=== PATIENT | male | born 1960 | race African-American/Black ===

== ENCOUNTER 2018-01-18 12:44 | Inpatient (IN) | payer OTHER ==
[2018-01-18 13:38] VITALS: BMI 25.2
--- NOTE | 2018-01-18 15:22 | HP ---
Admission ROS [facility] Chief Complaint: Patient presents for crack/cocaine dependence. Allergies/Adverse Reactions: Allergies Allergy/AdvReac Type Severity Reaction Status Date / Time No Known Allergies Allergy Verified 01/18/18 13:48 History of Present Illness: Patient presents for rehab services for crack/cocaine dependence. Patient started smoking crack at age 28. Smokes up to 200$ daily. Last time he smoked crack was 2-3 days ago. Patient denies dependence/use of other substances. Patient last attempted detox in 1998 at [facility]. Longest period of sobriety 10 years. Patient has history of Schizophrenia and Bipolar disorder. Denies SI/HI. Exam Limitations: No Limitations - Ebola screening Have you traveled outside of the country in the last 21 days: No Have you had contact with anyone from an Ebola affected area: No Have you been sick,other than usual withdrawal symptoms: No Do you have a fever: No - Review of Systems Constitutional: Changes in sleep EENT: reports: No Symptoms Reported Respiratory: reports: No Symptoms reported Cardiac: reports: No Symptoms Reported GI: reports: No Symptoms Reported : reports: No Symptoms Reported Musculoskeletal: reports: No Symptoms Reported Integumentary: reports: No Symptoms Reported Neuro: reports: No Symptoms reported Endocrine: reports: No Symptoms Reported Hematology: reports: No Symptoms Reported Psychiatric: reports: Orientated x3, Anxious, Depressed Patient History - Patient Medical History Hx Anemia: No Hx Asthma: No Hx Chronic Obstructive Pulmonary Disease (COPD): No Hx Cancer: No Hx Cardiac Disorders: No Hx Congestive Heart Failure: No Hx Hypertension: No Hx Hypercholesterolemia: No Hx Pacemaker: No HX Cerebrovascular Accident: No Hx Seizures: No Hx Dementia: No Hx Diabetes: No Hx Gastrointestinal Disorders: No Hx Liver Disease: No Hx Genitourinary Disorders: No Hx Sexually Transmitted Disorders: No Hx Renal Disease (ESRD): No Hx Thyroid Disease: No Hx Human Immunodeficiency Virus (HIV): No (last test 2017, negative) Hx Hepatitis C: No (last test 2017, negative) Hx Depression: Yes Hx Suicide Attempt: No Hx Bipolar Disorder: Yes Hx Schizophrenia: Yes (denies SI/HI and suicide attempts) - Patient Surgical History Past Surgical History: No Hx Neurologic Surgery: No Hx Cataract Extraction: No Hx Cardiac Surgery: No Hx Lung Surgery: No Hx Breast Surgery: No Hx Breast Biopsy: No Hx Abdominal Surgery: No Hx Appendectomy: No Hx Cholecystectomy: No Hx Genitourinary Surgery: No Hx Orthopedic Surgery: No Anesthesia Reaction: No - PPD History Previous Implant?: Yes Documented Results: Negative w/o proof PPD to be Administered?: Yes - Smoking Cessation Smoking history: Current every day smoker Have you smoked in the past 12 months: Yes Aproximately how many cigarettes per day: 3 Cigars Per Day: 0 Hx Chewing Tobacco Use: No Initiated information on smoking cessation: Yes 'Breaking Loose' booklet given: 01/18/18 - Substance & Tx. History Hx Alcohol Use: No Hx Substance Use: Yes Substance Use Type: Cocaine Hx Substance Use Treatment: Yes ([facility] 1998) - Substances Abused Crack Route: Smoking Frequency: 3-6 times per week Amount used: $200 Age of first use: 28 Date of Last Use: 01/16/18 Family Disease History - Family Disease History Family Disease History: Heart Disease: Mother (HTN, ), Other: Brother ( alcoholism, ), Sister (aloholism, alive) Admission Physical Exam [facility] - Vital Signs Vital Signs: Vital Signs - 24 hr 01/18/18 13:37 Temperature 97.4 F L Pulse Rate 61 Respiratory 20 Rate Blood Pressure 126/70 - Physical General Appearance: Yes: No Apparent Distress, Appropriately Dressed, Anxious HEENTM: Yes: EOMI, Hearing grossly Normal, Normocephalic, DUY, Pharynx Normal Respiratory: Yes: Chest Non-Tender, Lungs Clear, Normal Breath Sounds, No Respiratory Distress, No Accessory Muscle Use Neck: Yes: No masses,lesions,Nodules, Supple, Trachea in good position Breast: Yes: Breast Exam Deferred Cardiology: Yes: Regular Rhythm, Regular Rate, S1, S2 Abdominal: Yes: Normal Bowel Sounds, Non Tender, Soft Genitourinary: Yes: Within Normal Limits Back: Yes: Normal Inspection Musculoskeletal: Yes: full range of Motion, Gait Steady Extremities: Yes: Normal Inspection, Normal Range of Motion, Non-Tender Neurological: Yes: director search marketing strategies II-XII NML intact, Fully Oriented, Alert, Motor Strength 5/5, Normal Response, Depressed Affect Integumentary: Yes: Normal Color, Dry, Warm Lymphatic: Yes: Within Normal Limits - Diagnostic (1) Cocaine dependence Current Visit: Yes Status: Chronic Qualifiers: Substance use status: uncomplicated Qualified Code(s): F14.20 - Cocaine dependence, uncomplicated (2) Depressed affect Current Visit: Yes Status: Suspected (3) Bipolar disorder Current Visit: Yes Status: Chronic Qualifiers: Current episode severity: unspecified (4) Sleep disturbance Current Visit: Yes Status: Suspected Cleared for Admission [facility] - Detox or Rehab Claeared for Rehab Admission: Yes [facility] Breath Alcohol Content Breath Alcohol Content: 0 Urine Drug Screen - Results Drug Screen Negative: No Urine Drug Screen Results: ALXE-Cocaine Inpatient Rehab Admission - Initial Determination Are CD services needed?: Yes Free of communicable disease: Yes Not in need of hospitalization: Yes - Rehab Admission Criteria Previous failed treatment: Yes Poor recovery environment: Yes Comorbidities: Yes Lacks judgement: Yes Patient is meeting Inpatient Rehab admission criteria:: Yes
[2018-01-18] MEDS ORDERED: IBUPROFEN 400 MG TABLET (FP) PO PRN (15:29)
[2018-01-18] MEDS ORDERED: MAG HYDROX/AL HYDROX/SIMETH 30 ML UNIT-DOSE CUP PO PRN (15:29)
[2018-01-18] MEDS ORDERED: MENTHOL/PHENOL 1 EACH UD MM PRN (15:29)
[2018-01-18] MEDS ORDERED: P-EPHED 60MG/TRIPROLIDI 2.5MG TABLET PO PRN (15:29)
[2018-01-18] MEDS ORDERED: MAGNESIUM HYDROX 2400MG/30ML ORAL SUSPENSION 30 ML CUP PO PRN (15:29)
[2018-01-18] MEDS ORDERED: guaiFENesin/D-METHORPHAN HB 10 ML UNIT-DOSE CUPS PO PRN (15:29)
[2018-01-18] MEDS ORDERED: ACETAMINOPHEN 325 MG TABLET (FP) PO PRN (15:29)
[2018-01-18] MEDS ORDERED: MAGNESIUM CITRATE 300 ML BOTTLE PO PRN (15:29)
[2018-01-18] MEDS ORDERED: LOPERAMIDE HCL 2 MG CAPSULE PO PRN (15:29)
[2018-01-18] MEDS ORDERED: hydrOXYzine PAMOATE 25 MG CAPSULE (FP) PO PRN (15:29)
[2018-01-18] MEDS ORDERED: TUBERCULIN PPD 5 TU/0.1ML VIAL ID ONE (17:52)
[2018-01-18] MEDS: THIAMINE HCL 100 MG TABLET (FP) PO SCH (21:41)
[2018-01-18] MEDS ORDERED: ARIPiprazole 10 MG TABLET PO SCH ×2 (22:00→22:23)
[2018-01-18] MEDS ORDERED: MIRTAZAPINE 30 MG TABLET (FP) PO SCH (22:00)
[2018-01-18] MEDS ORDERED: ARIPiprazole 20 MG TABLET PO SCH (22:00)
[2018-01-18] MEDS ORDERED: MELATONIN 5 MG TABLETS PO PRN (22:00)
[2018-01-18] MEDS: ARIPiprazole 10 MG TABLET PO SCH (22:39)
--- NOTE | 2018-01-19 09:28 | HP ---
Psychiatrist Admission - Data Date of interview: 01/19/18 Admission source: [place] Identifying data: This is the first [facility] admission for this 57 years old single Black male, unemployed on SSD, domiciled living alone Medical History: Unremakable. Smokes 3 cigarettes daily Psychiatric History: Reports that his first psychiatric contact was 5-6 years ago when he was admitted to [facility] and diagnosed with Schizoaffectivec Disorder. Reports 5 subsequent admissions to various institutions including [facility], [facility] and most recently in November 2016 to [facility] on [address] in [place]. Reports receiving OPD care at [facility] on [address] and he is prescribed Abilify 20 mg po daily and Mirtazapine 30 mg po HS. Denies history of previous suicidal attempt. At presnt denies experiencing psychotic, manic or depressive symptoms, S/H ideations. However, reports sleeping poorly Physical/Sexual Abuse/Trauma History: Denies history of emotional, physical or sexual abuse as well as DV relationship. Reports serving in the [employer] from 1975- . Discharge was honorable Additional Comment: Reports history of 4 previous arrets including 2 felony convictions. Reports being on parole till March 15, 2018 Vital Signs: Vital Signs - 24 hr 01/18/18 01/18/18 01/19/18 13:37 16:55 04:18 Temperature 97.4 F L 99.0 F Pulse Rate 61 65 Respiratory 20 18 20 Rate Blood Pressure 126/70 114/79 01/19/18 07:31 Temperature 98.7 F Pulse Rate 61 Respiratory 18 Rate Blood Pressure 118/74 Allergies/Adverse Reactions: Allergies Allergy/AdvReac Type Severity Reaction Status Date / Time No Known Allergies Allergy Verified 01/18/18 13:48 Date of last physical exam: 01/18/18 Concur with the findings of this exam: Yes - Substance Abuse/Tx History Hx Alcohol Use: No Hx Substance Use: Yes Substance Use Type: Cocaine (Started smoking crack cocaine at age 28, consumes $ 300 worth 3-6 times weekly. Last smoked on 01/16/18) Hx Substance Use Treatment: No Mental Status Exam - Mental Status Exam Alert and Oriented to: Time, Place, Person Cognitive Function: Fair Patient Appearance: Well Groomed Mood: Hopeful, Euthymic Affect: Blunted Patient Behavior: Cooperative Speech Pattern: Clear Voice Loudness: Normal Thought Process: Intact, Goal Oriented Thought Disorder: Not Present Hallucinations: Denies Suicidal Ideation: Denies Homicidal Ideation: Denies Insight/Judgement: Fair Sleep: Poorly Appetite: Good Muscle strength/Tone: Normal Gait/Station: Normal Psychiatric Findings - Problem List ([place] 1, 2,3) (1) Cocaine dependence Current Visit: Yes Status: Acute Qualifiers: Substance use status: uncomplicated Qualified Code(s): F14.20 - Cocaine dependence, uncomplicated (2) Nicotine dependence Current Visit: Yes Status: Chronic (3) Schizoaffective disorder Current Visit: Yes Status: Chronic (4) Substance-induced sleep disorder Current Visit: Yes Status: Acute - Initial Treatment Plan Initial Treatment Plan: 1) Continue Abilify 20 mg po daily and Remeron 30 mg po HS. 2) Monitor progress
[2018-01-19] MEDS: PRENATAL VITAMINS W/ FOLIC ACID TABLET (FP) PO SCH (10:37)
[2018-01-19 11:03] LABS: HEMATOCRIT 39.2 % (35.4-49); HEMOGLOBIN 12.2 GM/dL (11.7-16.9); MEAN CELL VOLUME 77.5 fl (80-96); MEAN PLT VOLUME 10.3 fl (7.5-11.1); PLATELET COUNT 187 K/MM3 (134-434); RBC 5.06 M/mm3 (4.00-5.60); RDW 13.7 % (11.9-15.9); WHITE BLOOD COUNT 3.6 K/mm3 (4.0-10.0)
[2018-01-19 11:35] LABS: ALBUMIN 2.7 g/dl (3.4-5.0); ALK PHOS 52 U/L (45-117); ANION GAP 9 MMOL/L (8-16); BILIRUBIN,TOTAL 0.4 mg/dL (0.2-1); BLOOD UREA NITROGEN 12 mg/dL (7-18); CALCIUM 8.8 mg/dL (8.5-10.1); CHLORIDE 104 mmol/L (98-107); CO2 27 mmol/L (21-32); CREATININE 1.2 mg/dL (0.55-1.3); GLUCOSE,RANDOM 117 mg/dL (74-106); POTASSIUM 3.7 mmol/L (3.5-5.1); SGOT/AST 20 U/L (15-37); SGPT/ALT 17 U/L (13-61); SODIUM 140 mmol/L (136-145); TOT PROT 6.7 g/dl (6.4-8.2)
[2018-01-19] MEDS ORDERED: FLU VACCINE QUAD 60 MCG/0.5 ML (MDV 18-19) IM ONE (12:00)
[2018-01-19] MEDS ORDERED: PNEUMOC 13-VAL CONJ-DIP CRM/PF 0.5 ML DISP.SYRIN IM ONE (12:00)
[2018-01-19] MEDS ORDERED: PNEUMOCOCCAL 23 VACCINE 0.5 ML VIAL IM ONE (12:00)
[2018-01-19] MEDS: ARIPiprazole 10 MG TABLET PO SCH ×2 (12:28→22:00)
[2018-01-19 17:44] LABS: URINE APPEARANCE TURBID; URINE BILIRUBIN NEGATIVE (<2.0 mg/dL); URINE COLOR YELLOW; URINE GLUCOSE (UA) NEGATIVE (NEGATIVE); URINE KETONE NEGATIVE (NEGATIVE); URINE LEUK ESTERASE NEGATIVE (NEGATIVE); URINE NITRITE NEGATIVE (NEGATIVE); URINE PROTEIN 2+ (NEGATIVE); URINE UROBILINOGEN 4.0 E.U/dl mg/dL (0.2-1.0)
[2018-01-19 17:52] LABS: URINE BACTERIA MANY /hpf (NONE SEEN); URINE MUCUS MODERATE; YEAST MANY
[2018-01-19] MEDS: THIAMINE HCL 100 MG TABLET (FP) PO SCH (22:00)
[2018-01-19] MEDS: MIRTAZAPINE 30 MG TABLET (FP) PO SCH (22:00)
[2018-01-20] MEDS: ARIPiprazole 10 MG TABLET PO SCH ×2 (10:35→21:51)
[2018-01-20] MEDS: PRENATAL VITAMINS W/ FOLIC ACID TABLET (FP) PO SCH (10:35)
--- NOTE | 2018-01-20 17:33 | EKG ---
Test Reason : Blood Pressure : / mmHG Vent. Rate : 063 BPM Atrial Rate : 063 BPM P-R Int : 126 ms QRS Dur : 092 ms QT Int : 422 ms P-R-T Axes : 078 063 071 degrees QTc Int : 431 ms NORMAL SINUS RHYTHM NORMAL ECG NO PREVIOUS ECGS AVAILABLE Confirmed by RYAN CAPPS, JOI ([id number]) on 01/20/2018 5:32:44 PM Referred By: Confirmed By:JOI ADVIS MD
[2018-01-20] MEDS: THIAMINE HCL 100 MG TABLET (FP) PO SCH (21:51)
[2018-01-20] MEDS: MIRTAZAPINE 30 MG TABLET (FP) PO SCH (21:51)
[2018-01-21] MEDS: PRENATAL VITAMINS W/ FOLIC ACID TABLET (FP) PO SCH (10:14)
[2018-01-21] MEDS: MIRTAZAPINE 30 MG TABLET (FP) PO SCH (22:08)
[2018-01-21] MEDS: ARIPiprazole 10 MG TABLET PO SCH (22:08)
[2018-01-21] MEDS: THIAMINE HCL 100 MG TABLET (FP) PO SCH (22:09)
[2018-01-22] MEDS: PRENATAL VITAMINS W/ FOLIC ACID TABLET (FP) PO SCH (10:33)
[2018-01-22] MEDS: ARIPiprazole 10 MG TABLET PO SCH (21:46)
[2018-01-22] MEDS: MIRTAZAPINE 30 MG TABLET (FP) PO SCH (21:46)
[2018-01-22] MEDS: THIAMINE HCL 100 MG TABLET (FP) PO SCH (21:46)
[2018-01-23] MEDS: PRENATAL VITAMINS W/ FOLIC ACID TABLET (FP) PO SCH (11:05)
[2018-01-23] MEDS: THIAMINE HCL 100 MG TABLET (FP) PO SCH (22:07)
[2018-01-23] MEDS: MIRTAZAPINE 30 MG TABLET (FP) PO SCH (22:08)
[2018-01-23] MEDS: ARIPiprazole 10 MG TABLET PO SCH (22:08)
[2018-01-24] MEDS: PRENATAL VITAMINS W/ FOLIC ACID TABLET (FP) PO SCH (10:38)
[2018-01-24] MEDS: THIAMINE HCL 100 MG TABLET (FP) PO SCH (21:59)
[2018-01-24] MEDS: MIRTAZAPINE 30 MG TABLET (FP) PO SCH (22:00)
[2018-01-24] MEDS: ARIPiprazole 10 MG TABLET PO SCH (22:00)
[2018-01-25] MEDS: PRENATAL VITAMINS W/ FOLIC ACID TABLET (FP) PO SCH (10:39)
[2018-01-25] MEDS: THIAMINE HCL 100 MG TABLET (FP) PO SCH (21:53)
[2018-01-25] MEDS: ARIPiprazole 10 MG TABLET PO SCH (21:53)
[2018-01-25] MEDS: MIRTAZAPINE 30 MG TABLET (FP) PO SCH (21:53)
[2018-01-26] MEDS: PRENATAL VITAMINS W/ FOLIC ACID TABLET (FP) PO SCH (13:26)
[2018-01-26] MEDS: ARIPiprazole 10 MG TABLET PO SCH (21:46)
[2018-01-26] MEDS: THIAMINE HCL 100 MG TABLET (FP) PO SCH (21:46)
[2018-01-26] MEDS: MIRTAZAPINE 30 MG TABLET (FP) PO SCH (21:46)
[2018-01-27] MEDS: PRENATAL VITAMINS W/ FOLIC ACID TABLET (FP) PO SCH (10:41)
[2018-01-27] MEDS: THIAMINE HCL 100 MG TABLET (FP) PO SCH (21:38)
[2018-01-27] MEDS: ARIPiprazole 10 MG TABLET PO SCH (21:38)
[2018-01-27] MEDS: MIRTAZAPINE 30 MG TABLET (FP) PO SCH (21:38)
[2018-01-28] MEDS: PRENATAL VITAMINS W/ FOLIC ACID TABLET (FP) PO SCH (10:49)
[2018-01-28] MEDS: MIRTAZAPINE 30 MG TABLET (FP) PO SCH (21:24)
[2018-01-28] MEDS: ARIPiprazole 10 MG TABLET PO SCH (21:24)
[2018-01-28] MEDS: THIAMINE HCL 100 MG TABLET (FP) PO SCH (21:24)
[2018-01-29] MEDS: PRENATAL VITAMINS W/ FOLIC ACID TABLET (FP) PO SCH (11:04)
[2018-01-29] MEDS: NICOTINE POLACRILEX 2 MG GUM BC PRN (12:32)
[2018-01-29] MEDS: THIAMINE HCL 100 MG TABLET (FP) PO SCH (21:41)
[2018-01-29] MEDS: ARIPiprazole 10 MG TABLET PO SCH (21:41)
[2018-01-29] MEDS: MIRTAZAPINE 30 MG TABLET (FP) PO SCH (21:41)
[2018-01-30] MEDS: PRENATAL VITAMINS W/ FOLIC ACID TABLET (FP) PO SCH (11:00)
[2018-01-30] MEDS: THIAMINE HCL 100 MG TABLET (FP) PO SCH (21:51)
[2018-01-30] MEDS: MIRTAZAPINE 30 MG TABLET (FP) PO SCH (21:51)
[2018-01-30] MEDS: ARIPiprazole 10 MG TABLET PO SCH (21:51)
[2018-01-31] MEDS: PRENATAL VITAMINS W/ FOLIC ACID TABLET (FP) PO SCH (10:15)
[2018-01-31] MEDS: NICOTINE POLACRILEX 2 MG GUM BC PRN (14:28)
[2018-01-31] MEDS: MIRTAZAPINE 30 MG TABLET (FP) PO SCH (21:46)
[2018-01-31] MEDS: ARIPiprazole 10 MG TABLET PO SCH (21:46)
[2018-01-31] MEDS: THIAMINE HCL 100 MG TABLET (FP) PO SCH (21:46)
[2018-02-01] MEDS: PRENATAL VITAMINS W/ FOLIC ACID TABLET (FP) PO SCH (10:35)
[2018-02-01] MEDS: THIAMINE HCL 100 MG TABLET (FP) PO SCH (21:46)
[2018-02-01] MEDS: MIRTAZAPINE 30 MG TABLET (FP) PO SCH (21:46)
[2018-02-01] MEDS: ARIPiprazole 10 MG TABLET PO SCH (21:46)
[2018-02-02] MEDS: PRENATAL VITAMINS W/ FOLIC ACID TABLET (FP) PO SCH (10:05)
[2018-02-02] MEDS: MIRTAZAPINE 30 MG TABLET (FP) PO SCH (21:40)
[2018-02-02] MEDS: ARIPiprazole 10 MG TABLET PO SCH (21:40)
[2018-02-02] MEDS: THIAMINE HCL 100 MG TABLET (FP) PO SCH (21:40)
[2018-02-03] MEDS: PRENATAL VITAMINS W/ FOLIC ACID TABLET (FP) PO SCH (10:30)
[2018-02-03] MEDS: MIRTAZAPINE 30 MG TABLET (FP) PO SCH (21:47)
[2018-02-03] MEDS: ARIPiprazole 10 MG TABLET PO SCH (21:47)
[2018-02-03] MEDS: THIAMINE HCL 100 MG TABLET (FP) PO SCH (21:47)
[2018-02-04] MEDS: PRENATAL VITAMINS W/ FOLIC ACID TABLET (FP) PO SCH (10:25)
[2018-02-04] MEDS: THIAMINE HCL 100 MG TABLET (FP) PO SCH (21:43)
[2018-02-04] MEDS: ARIPiprazole 10 MG TABLET PO SCH (21:43)
[2018-02-04] MEDS: MIRTAZAPINE 30 MG TABLET (FP) PO SCH (21:43)
[2018-02-05] MEDS: PRENATAL VITAMINS W/ FOLIC ACID TABLET (FP) PO SCH (10:32)
[2018-02-05] MEDS: NICOTINE POLACRILEX 2 MG GUM BC PRN (16:25)
[2018-02-05] MEDS: ARIPiprazole 10 MG TABLET PO SCH (21:45)
[2018-02-05] MEDS: THIAMINE HCL 100 MG TABLET (FP) PO SCH (21:45)
[2018-02-05] MEDS: MIRTAZAPINE 30 MG TABLET (FP) PO SCH (21:45)
[2018-02-06] MEDS: PRENATAL VITAMINS W/ FOLIC ACID TABLET (FP) PO SCH (10:22)
[2018-02-06] MEDS: MIRTAZAPINE 30 MG TABLET (FP) PO SCH (21:39)
[2018-02-06] MEDS: ARIPiprazole 10 MG TABLET PO SCH (21:39)
[2018-02-06] MEDS: THIAMINE HCL 100 MG TABLET (FP) PO SCH (21:39)
--- NOTE | 2018-02-07 10:20 | PN ---
Psychiatric Progress Note Vital Signs: Vital Signs Period Temp Pulse Resp BP Sys/Hills Pulse Ox Last 24 Hr 98.3 F 60 18-18 118/78 Date of Session: 02/07/18 Chief Complaint:: Discharge Note HPI: Patient addressing Cocaine Dependence comorbid with Nicotine dependence, Schizoaffective Disorder and Substance-Induced Sleep Disorder Current Medications: Active Medications Generic Name Dose Route Start Last Admin Trade Name Freq PRN Reason Stop Dose Admin Acetaminophen 650 mg 01/18/18 15:29 Tylenol - PO Q4H PRN FEVER Al Hydroxide/Mg Hydroxide 30 ml 01/18/18 15:29 Mylanta Oral Suspension - PO Q6H PRN DYSPEPSIA Aripiprazole 20 mg 01/18/18 22:30 02/06/18 21:39 Abilify PO 20 mg HS KALINA Administration Eucalyptus/Menthol/Phenol/Sorbitol 1 each 01/18/18 15:29 Cepastat Lozenge - MM Q4H PRN SORE THROAT Guaifenesin 10 ml 01/18/18 15:29 Robitussin Dm - PO Q6H PRN COUGH Hydroxyzine Pamoate 25 mg 01/18/18 15:29 Vistaril - PO Q4H PRN AGITATION Ibuprofen 400 mg 01/18/18 15:29 Motrin - PO Q6H PRN Pain level 4-6 Loperamide HCl 4 mg 01/18/18 15:29 Imodium - PO Q6H PRN DIARRHEA Magnesium Citrate 300 ml 01/18/18 15:29 Citroma - PO Q48H PRN CONSTIPATION Magnesium Hydroxide 30 ml 01/18/18 15:29 Milk Of Magnesia - PO DAILY PRN CONSTIPATION Melatonin 5 mg 01/18/18 22:00 Melatonin PO HS PRN INSOMNIA Mirtazapine 30 mg 01/19/18 22:00 02/06/18 21:39 Remeron - PO 30 mg HS KALINA Administration Nicotine Polacrilex 2 mg 01/18/18 15:29 02/05/18 16:25 Nicorette Gum - BC 2 mg Q2H PRN Administration NICOTINE REPLACEMENT RX Multivit/Folic Acid/Iron 1 tab 01/19/18 10:00 02/06/18 10:22 Vitamins (Sjr) - PO Not Given DAILY KALINA Pseudoephedrine/Triprolidine 1 combo 01/18/18 15:29 Actifed - PO TID PRN NASAL CONGESTION Thiamine HCl 100 mg 01/18/18 22:00 02/06/18 21:39 Vitamin B1 - PO 100 mg HS KALINA Administration Current Side Effect: No Lab tests ordered: Yes Lab tests reviewed: Yes Provider note:: Patient will complete this program on 02/08/18. He has met his treatment goals and will continue to address his issues in outpatient treatment at [facility] at [id number] [place] [address]. Told customs entry writer that from his participation in this program, he has learned if you don't pick it up, you can't get high . He responded well to Abilify 20 mg po daily and Mirtazapine 30 mg po HS. Scripts for 30 days supply of these medications will be electronically transmitted to [facility] at [address] [place] [address]. He is stable for discharge on 02/08/18 Total face to face time:: 35 Mental Status Exam - Mental Status Exam Alert and Oriented to: Time, Place, Person Cognitive Function: Fair Patient Appearance: Well Groomed Mood: Hopeful, Euthymic Affect: Blunted Patient Behavior: Cooperative Speech Pattern: Clear Voice Loudness: Normal Thought Process: Intact Thought Disorder: Not Present Hallucinations: Denies Suicidal Ideation: Denies Homicidal Ideation: Denies Insight/Judgement: Fair Sleep: Fair Appetite: Good Muscle strength/Tone: Normal Gait/Station: Normal Psychiatric Treatment Plan - Problem List (1) Cocaine dependence Current Visit: Yes Qualifiers: Substance use status: uncomplicated Qualified Code(s): F14.20 - Cocaine dependence, uncomplicated (2) Nicotine dependence Current Visit: Yes (3) Schizoaffective disorder Current Visit: Yes (4) Substance-induced sleep disorder Current Visit: Yes Initial treatment plan: Patient will be discharged tomorrow and referred to [facility] for outpatient treatment
[2018-02-07] MEDS: PRENATAL VITAMINS W/ FOLIC ACID TABLET (FP) PO SCH (10:44)
[2018-02-07] MEDS ORDERED: ARIPiprazole 5 MG TABLET (FP) ONE (20:11)
[2018-02-07] MEDS: THIAMINE HCL 100 MG TABLET (FP) PO SCH (22:06)
[2018-02-07] MEDS: MIRTAZAPINE 30 MG TABLET (FP) PO SCH (22:06)
[2018-02-07] MEDS: ARIPiprazole 10 MG TABLET PO SCH (22:06)
[2018-02-08 07:29] VITALS: BP 111/80; PULSE 61; TEMP 98.2
[2018-02-08] MEDS: PRENATAL VITAMINS W/ FOLIC ACID TABLET (FP) PO SCH (09:36)
== END 2018-02-08 09:55 | disposition home or self-care (01) | DRG 772 ==
LOC: YASAS 12:44 → Y5N 16:08
PROVIDERS: ADMIT Psychiatry & Neurology Psychiatry; ATTEND Psychiatry & Neurology Psychiatry
PROC: HZ42ZZZ Group Counseling for Substance Abuse Treatment, Cognitive-Behavioral (ICD-10-PCS; principal; 2018-01-18)
DX: F14.20 Cocaine dependence, uncomplicated (principal); F17.210 Nicotine dependence, cigarettes, uncomplicated; F25.9 Schizoaffective disorder, unspecified; F19.282 Other psychoactive substance dependence with psychoactive substance-induced sleep disorder; F31.9 Bipolar disorder, unspecified
CPT/HCPCS: 36415; 80053; 81003; 81015; 85027; 86593; 90688; 90732; 93005; 93010; G0008; G0009